=== PATIENT | male | born 1995 | race African-American/Black ===

== ENCOUNTER 2017-05-25 11:02 | Emergency (ER) | payer MEDICAID ==
[~2017-05-25] VITALS: Ht 180.3 cm; Wt 68.5 kg
[2017-05-25 11:09] VITALS: BP 119/80
[2017-05-25] MEDS ORDERED: HYDROcodone/APAP 5/325 TABLET PO ONE (12:00)
[2017-05-25] MEDS ORDERED: HYDROcodone/APAP 5/325 TABLET ONE (12:08)
== END 2017-05-25 15:02 | disposition home or self-care (01) ==
LOC: ED 13:52
DX: S82.144A Nondisplaced bicondylar fracture of right tibia, initial encounter for closed fracture (principal); W34.00XA Accidental discharge from unspecified firearms or gun, initial encounter; Y93.89 Activity, other specified; Y99.8 Other external cause status; Y92.89 Other specified places as the place of occurrence of the external cause
CPT/HCPCS: 99284